=== PATIENT | male | born 2005 | race Caucasian/White ===

== ENCOUNTER 2023-05-06 23:56 | Outpatient (CLI) | payer SELFPAY | END 2023-05-06 23:57 | disposition home or self-care (01) | LOC: AMB 05-09 07:21 | PROVIDERS: PCP Family Medicine; Visit Provider Internal Medicine | DX: F10.129 Alcohol abuse with intoxication, unspecified (principal); R11.2 Nausea with vomiting, unspecified | CPT/HCPCS: A0425; A0427 ==

== ENCOUNTER 2023-05-07 00:22 | Emergency (ER) | payer SELFPAY ==
[2023-05-07 00:26] VITALS: BP 130/68; PULSE 76; RESP 20; TEMP 36.4; O2SAT 97; BMI 27.5
--- NOTE | 2023-05-07 00:33 | ED_ITS ---
HPI - General Adult General Chief complaint: Nausea/Vomiting Stated complaint: ETOH Time Seen by Provider: 05/07/23 00:30 History of Present Illness HPI narrative: Patient is a 18-year-old gentleman who is been drinking alcohol and smoking marijuana at [facility]. He felt fine until he got home and developed refractory nausea and vomiting. Patient was unable to get his usual dose of Zyprexa and Prozac in and was very concerned. Patient is clearly intoxicated. He has no history of any trauma. He was brought in by EMS was normal vital signs. He is breathing room air without any difficulty. He states other than his mental health issues he is otherwise healthy. No other concerns are noted patient has no pain his nausea has been treated with IV fluids and Zofran in route. Related Data Home Medications Medication Instructions Recorded Confirmed fluoxetine 20 mg capsule (Prozac) 20 mg PO QPM 05/07/23 05/07/23 olanzapine 5 mg tablet (Zyprexa) 5 mg PO QPM 05/07/23 05/07/23 Allergies Allergy/AdvReac Type Severity Reaction Status Date / Time No Known Drug Allergies Allergy Verified 05/07/23 00:30 Review of Systems Status of ROS: Reports: unobtainable due to mental status PFSH PFSH Family History Other Anxiety Depression Social History Smoking Status: Former smoker Do you use any of these nicotine containing products: None How often do you have a drink containing alcohol: monthly or less AUDIT-C Alcohol total score: 1 Non-prescribed substance use: denies use service: No Exam Narrative: Exam Narrative: EXAM GENERAL: Patient appears to be intoxicated. EYES: No scleral icterus. ENT: Tympanic membranes and oropharynx normal. THYROID: no thyroid nodules or thyromegaly. LYMPH: No supraclavicular or cervical lymphadenopathy. SKIN: Visible skin seen during exam normal or with benign process only. EXT: No dependent lower extremity pedal edema. HEART: Regular rate and rhythm with no murmurs, rubs, or gallops. LUNGS: Clear to auscultation bilaterally with no crackles or wheezes. ABD: Soft, non tender, non distended. PSYCH: Intoxicated Const: Vital Signs, click to edit/add: Vital Signs - 24 hr 05/07/23 00:26 Temperature 97.6 F Pulse Rate [Pulse Oximeter] 76 Respiratory Rate 20 Blood Pressure [Ri ght Upper Arm] 130/68 Pulse Oximetry 97 Oxygen Delivery Me thod Room Air Course Course ED Course: Patient seen and examined. We will observe him carefully without further intervention at this point. Vital Signs Vital signs: Initial Vital Signs Temperature 97.6 F 05/07/23 00:26 Temperature Source Temporal Artery Scan 05/07/23 00:26 Pulse Rate 76 05/07/23 00:26 Pulse Strength 3+ Normal 05/07/23 00:26 Respiratory Rate 20 05/07/23 00:26 Blood Pressure 130/68 05/07/23 00:26 Blood Pressure Mean 88 05/07/23 00:26 Pulse Oximetry 97 05/07/23 00:26 Oxygen Delivery Method Room Air 05/07/23 00:26 Vital Signs Temperature 97.6 F 05/07/23 00:26 Pulse Rate 76 05/07/23 00:26 Respiratory Rate 20 05/07/23 00:26 Blood Pressure 130/68 05/07/23 00:26 Pulse Oximetry 97 05/07/23 00:26 Oxygen Delivery Method Room Air 05/07/23 00:26 Temperature 97.6 F 05/07/23 00:26 Pulse Rate 76 05/07/23 00:26 Respiratory Rate 20 05/07/23 00:26 Blood Pressure 130/68 05/07/23 00:26 Pulse Oximetry 97 05/07/23 00:26 Oxygen Delivery Method Room Air 05/07/23 00:26 Medical Decision Making [facility] Narrative Medical decision making narrative: Patient is a 18-year-old gentleman who unfortunately has been using alcohol and marijuana tonight. We did observe him carefully for approximately 3 hours keeping him safe. He is now up and about will to take care of himself without any difficulty. This time he is warned as to the dangers of drugs alcohol is discharged back to campus. Follow up with his primary physician as needed. Differential Diagnosis Differential Diagnosis: Alcohol intoxication drug overdose poisoning Discharge Plan Discharge Clinical Impression: Alcohol intoxication Patient Disposition: Home, Self-Care Condition: Improved Instructions: Abuse of Alcohol (ED) Activity Level: No Restrictions Discharge Diet: Regular Prescriptions: No Action fluoxetine [Prozac] 20 mg capsule 20 mg PO QPM olanzapine [Zyprexa] 5 mg tablet 5 mg PO QPM Follow Up/Referrals: Sandeep Shukla MD [Primary Care Provider] - Stand Alone Forms: Multistat Info Instructions
--- NOTE | 2023-05-07 03:18 | ED.NURSE ---
Patient placed call light on and stated that he is feeling better and would like to go home. MD martinez notified.
== END 2023-05-07 03:29 | disposition home or self-care (01) ==
PROVIDERS: Emergency Provider Internal Medicine; PCP Family Medicine
DX: F10.129 Alcohol abuse with intoxication, unspecified (principal)
CPT/HCPCS: 99283